=== PATIENT | male | born 1975 | race Caucasian/White ===

== ENCOUNTER 2017-04-17 16:56 | Emergency (ER) | payer OTHER ==
[~2017-04-17] VITALS: Ht 180.3 cm; Wt 99.8 kg
[2017-04-17] MEDS ORDERED: KLONOPIN0.5 MG PO (17:13)
[2017-04-17] MEDS ORDERED: AMBIEN 5 MG TABL5 M1 PO (17:15)
[2017-04-17] MEDS ORDERED: CLONAZEPAM 0.50.5 M1 PO (17:15)
[2017-04-17] MEDS ORDERED: ZOLOFT100 MG PO (17:15)
[2017-04-17 18:08] LABS: URINE BILIRUBIN NEGATIVE (Negative); URINE BLOOD NEGATIVE (Negative); URINE CLARITY CLEAR; URINE COLOR YELLOW; URINE GLUCOSE-RANDOM NEGATIVE (Negative); URINE KETONES NEGATIVE (Negative); URINE LEUKOCYTES-REFLEX NEGATIVE (Negative); URINE NITRITE-REFLEX NEGATIVE (Negative); URINE PROTEIN NEGATIVE (Negative); URINE UROBILINOGEN 0.2 E.U./dl (0.2-1.0)
[2017-04-17] MEDS ORDERED: CIPRO500 M1 PO (18:52)
[2017-04-17] MEDS ORDERED: IBUPROFEN 800800 MG PO (18:53)
[2017-04-17 19:15] VITALS: BP 132/82
== END 2017-04-17 19:17 | disposition home or self-care (01) ==
LOC: M.ERS 16:56
PROVIDERS: Nurse Practitioner Family
DX: N45.2 Orchitis (principal); F41.9 Anxiety disorder, unspecified

== ENCOUNTER 2017-05-08 17:13 | Emergency (ER) | payer OTHER ==
[~2017-05-08] VITALS: Ht 180.3 cm; Wt 99.8 kg
[~2017-05-08 17:13] MED LIST: AMBIEN 5 MG TABL5 M1 PO; CIPRO500 M1 PO; CLONAZEPAM 0.50.5 M1 PO; IBUPROFEN 800800 MG PO; KLONOPIN0.5 MG PO; ZOLOFT100 MG PO
[2017-05-08 18:32] VITALS: BP 130/76
== END 2017-05-08 18:33 | disposition home or self-care (01) ==
LOC: M.ERS 17:13
DX: S01.112A Laceration without foreign body of left eyelid and periocular area, initial encounter (principal); F41.9 Anxiety disorder, unspecified; W01.0XXA Fall on same level from slipping, tripping and stumbling without subsequent striking against object, initial encounter; Y93.89 Activity, other specified; Y92.009 Unspecified place in unspecified non-institutional (private) residence as the place of occurrence of the external cause; Y99.8 Other external cause status